=== PATIENT | female | born 1955 | race Caucasian/White ===

== ENCOUNTER 2024-06-10 08:36 | Day surgery (SDC) | payer MEDICARE, BC ==
[2024-06-09 10:16] VITALS: BMI 40.3
[2024-06-10] MEDS ORDERED: Bacitracin Zinc Ointment 30 gm TUBE ONE (09:10)
[2024-06-10] MEDS ORDERED: EPINEPHrine 1 MG/ML VIAL ONE (09:10)
[2024-06-10] MEDS ORDERED: Lidocaine 1% (PF) 30 ML VIAL ONE (09:10)
[2024-06-10] MEDS ORDERED: AFRIN NASAL MIST 15 ML BOT ONE (10:32)
[2024-06-10] MEDS ORDERED: fentaNYL PF 100 MCG/2 ML SYRINGE ONE ×2 (10:38→13:59)
[2024-06-10] MEDS ORDERED: PROPOFOL 20 ML ONE (10:38)
[2024-06-10] MEDS ORDERED: Lidocaine 1% PF 5 ML VIAL ONE (10:40)
[2024-06-10] MEDS ORDERED: Rocuronium Bromide 10 MG/ML (10ML VIAL) ONE (10:40)
[2024-06-10] MEDS ORDERED: Dexamethasone 20 MG/5 ML VIAL ONE (10:40)
[2024-06-10] MEDS ORDERED: Ondansetron PF 4 MG/2 ML Vial ONE ×2 (10:40→11:10)
[2024-06-10] MEDS ORDERED: SUGAMMADEX SODIUM 200 MG/2 ML VIAL ONE (10:46)
[2024-06-10] MEDS ORDERED: PROPOFOL 40 ML ONE (10:47)
[2024-06-10] MEDS ORDERED: Phenylephrine 10 MG/ML VIAL ONE (10:48)
[2024-06-10] MEDS ORDERED: Sodium Chloride 0.9% 100 ML ONE (10:48)
[2024-06-10] MEDS ORDERED: fentaNYL 50 mcg/mL 1 mL Vial ONE ×3 (10:59→13:48)
[2024-06-10] MEDS ORDERED: ePHEDrine Sulfate 50 MG/10 ML VIAL ONE (12:29)
[2024-06-10] MEDS ORDERED: Glycopyrrolate 0.2 MG/ML 5 ML SYRINGE ONE (13:02)
[2024-06-10] MEDS ORDERED: Oxymetazoline HCl 0.05% (30 ML BOT) ONE (13:08)
[2024-06-10] MEDS ORDERED: Labetalol HCl 100 MG/20 ML VIAL ONE (13:48)
[2024-06-10] MEDS ORDERED: Morphine 2 MG/ML VIAL ONE ×2 (14:09→14:18)
[2024-06-10] MEDS ORDERED: hydrALAZINE 20 MG/ML VIAL ONE (14:33)
[2024-06-10] MEDS ORDERED: HYDROcodone/Acetaminophen 5/325 mg Tablet ONE (15:38)
== END 2024-06-10 16:08 | disposition home or self-care (01) ==
LOC: SDC 08:36
PROVIDERS: ATTEND Specialist
PROC: 09TV8ZZ Resection of Left Ethmoid Sinus, Via Natural or Artificial Opening Endoscopic (ICD-10-PCS; principal; 2024-06-10)
PROC: 09TW8ZZ Resection of Right Sphenoid Sinus, Via Natural or Artificial Opening Endoscopic (ICD-10-PCS; 2024-06-10)
PROC: 09TX8ZZ Resection of Left Sphenoid Sinus, Via Natural or Artificial Opening Endoscopic (ICD-10-PCS; 2024-06-10)
PROC: 09TQ8ZZ Resection of Right Maxillary Sinus, Via Natural or Artificial Opening Endoscopic (ICD-10-PCS; 2024-06-10)
PROC: 09TR8ZZ Resection of Left Maxillary Sinus, Via Natural or Artificial Opening Endoscopic (ICD-10-PCS; 2024-06-10)
PROC: 09TS8ZZ Resection of Right Frontal Sinus, Via Natural or Artificial Opening Endoscopic (ICD-10-PCS; 2024-06-10)
PROC: 09TT8ZZ Resection of Left Frontal Sinus, Via Natural or Artificial Opening Endoscopic (ICD-10-PCS; 2024-06-10)
PROC: 09TU8ZZ Resection of Right Ethmoid Sinus, Via Natural or Artificial Opening Endoscopic (ICD-10-PCS; 2024-06-10)
PROC: 09TL8ZZ Resection of Nasal Turbinate, Via Natural or Artificial Opening Endoscopic (ICD-10-PCS; 2024-06-10)
PROC: 09BM8ZZ Excision of Nasal Septum, Via Natural or Artificial Opening Endoscopic (ICD-10-PCS; 2024-06-10)
PROC: 09TL8ZZ Resection of Nasal Turbinate, Via Natural or Artificial Opening Endoscopic (ICD-10-PCS; 2024-06-10)
DX: J34.3 Hypertrophy of nasal turbinates (principal); J34.2 Deviated nasal septum; J01.41 Acute recurrent pansinusitis; J34.89 Other specified disorders of nose and nasal sinuses; R51.9 Headache, unspecified; I10 Essential (primary) hypertension; E78.00 Pure hypercholesterolemia, unspecified; E11.9 Type 2 diabetes mellitus without complications; J30.9 Allergic rhinitis, unspecified; G47.30 Sleep apnea, unspecified; Z79.01 Long term (current) use of anticoagulants; Z79.82 Long term (current) use of aspirin; Z79.899 Other long term (current) drug therapy; Z88.0 Allergy status to penicillin; Z88.2 Allergy status to sulfonamides; Z88.8 Allergy status to other drugs, medicaments and biological substances; Z90.49 Acquired absence of other specified parts of digestive tract; Z90.710 Acquired absence of both cervix and uterus
CPT/HCPCS: 30140; 30520; 31240; 31256; 31257; 31276; 61782; 93005; J0171; J0360; J1100; J2001; J2272; J2371; J2405; J2704; J3010; 93010